=== PATIENT | female | born 1980 | race Caucasian/White ===

== ENCOUNTER 2019-11-30 23:38 | Emergency (ER) | payer MEDICAID ==
[~2019-11-30] VITALS: Ht 154.9 cm; Wt 82.6 kg
[2019-11-30 23:48] VITALS: Ht 154.9 cm; Wt 82.6 kg
[2019-12-01 00:16] VITALS: BP 176/69
== END 2019-12-01 00:16 | disposition home or self-care (01) ==
LOC: ED 23:38
DX: S51.812D Laceration without foreign body of left forearm, subsequent encounter (principal); I10 Essential (primary) hypertension; E11.9 Type 2 diabetes mellitus without complications; X58.XXXD Exposure to other specified factors, subsequent encounter; M77.9 Enthesopathy, unspecified

== ENCOUNTER 2019-12-08 19:52 | Inpatient (IN) | payer MEDICAID ==
[~2019-12-08] VITALS: Ht 154.9 cm; Wt 79.2 kg
--- NOTE | 2019-12-08 20:02 | NUR ---
EKG IN PROGRESS IN TRIAGE.
--- NOTE | 2019-12-08 20:13 | NUR ---
PT PRESENTS TO ED WITH C/O CHEST PAIN. PT STATES THAT THE PAIN STARTED ON WEDNESDAY AND SHE SAW HER PCP ON WEDNESDAY. PT STATES THAT THEY PERFORMED BLOOD WORK AND SENT HER HOME BUT HER PAIN DID NOT IMPROVE. PT STATES THAT SHE SAW HER PCP AGAIN TODAY AND THEY TOLD HER TO COME TO THE ED. PT STATES THAT THE PAIN IS L SIDED AND NON-RADIATING. PT REPORTS FEELING SOB AT REST WHICH IS ABNORMAL FOR HER. PT STATES THAT THE PAIN IS SHARP IN NATURE. PT STATES TO NAUSEA AND VOMITING WITH X4 EPISODES OF VOMITING TODAY. PT IS AOX4, RESP EVEN AND UNLABORED, NO ACUTE DISTRESS NOTED.
[2019-12-08 20:24] LABS: BASOPHIL % 0.7 % (0-2)
[2019-12-08 20:27] LABS: PLATELET COUNT 433 x10^3mcL (130-400); RED CELL DISTRIBUTION WIDTH 14.8 % (11.5-14.5)
[2019-12-08 20:33] LABS: CALCIUM 9.8 mg/dL (8.5-10.1); CARBON DIOXIDE 29.2 mmol/L (21-32); CHLORIDE SERUM 98 mmol/L (98-107); CREATININE SERUM 0.6 mg/dL (0.6-1.0); GFR1 > 60 mL/min; GLUCOSE SERUM 236 mg/dL (74-106); POTASSIUM SERUM 3.4 mmol/L (3.5-5.1); SODIUM SERUM 135 mmol/L (136-145)
[2019-12-08 20:38] LABS: ALKALINE PHOSPHATASE 120 U/L (46-116); ALT/SGPT 33 U/L (14-59); AST/SGOT 13 U/L (15-37); BILIRUBIN TOTAL 0.8 mg/dL (0.20-1.00)
[2019-12-08 20:39] LABS: TOTAL PROTEIN, SERUM 8.3 g/dL (6.4-8.2)
[2019-12-08] MEDS ORDERED: GLU850 PO (21:50)
[2019-12-08] MEDS ORDERED: GLIPIZIDE10 M2 (21:51)
[2019-12-08] MEDS ORDERED: GOOD SENSE ASPI81 M3 (21:51)
--- NOTE | 2019-12-08 22:05 | NUR ---
PT REPORT CALLED TO TOBIN RODRIGUEZ TO ASSUME PT CARE.
--- NOTE | 2019-12-08 22:07 | NUR ---
RECEIVED REPORT FROM ALEJANDRO RODRIGUEZ FROM ED. AWAITING FOR PT TO ARRIVE ON UNIT.
--- NOTE | 2019-12-08 22:08 | NUR ---
PT TRANSFERRED TO [facility] BY [facility] BY AYLIN RODRIGUEZ AND CRISTELA EMT. PT ON FULL CM FOR TRANSPORT. PT IS AOX4, RESP EVEN AND UNLABORED, NO ACUTE DISTRESS NOTED. PT ACCEPTED BY TOBIN RODRIGUEZ TO ASSUME PT CARE, PT AMBULATED FROM [facility] TO BED WITH STEADY GAIT.
--- NOTE | 2019-12-08 22:20 | NUR ---
RECEIVED PT FROM ED VIA [facility], CAME IN DUE TO CHEST PAIN X1 WEEK W/ SOB. AAOX4. C/O 10/10 PRESSURE HEADACHE, DENIES DIZZINESS. SPEECH IS CLEAR. C/O MILD SOB, LUNG SOUNDS CTA. O2 SAT=96%, RA. C/O 10/10 PRESSURE LEFT SIDED CHEST PAIN, NON-RADIATING, SR W/ DEPRESSED ST ON THE MONITOR. C/O NAUSEA. STATED THAT SHE HAS 4 EPISODES OF VOMITING AND DIARRHEA. ABDOMEN IS SOFT. BOWEL SOUNDS ACTIVE. ABDOMEN IS SOFT. VOIDS. W/ LFA SCAB/DISCOLORATION, STEPHANY. IV SITE ON THE LAC IS PATENT AND INTACT. SIDE RAILS UPX2. CALL LIGHT ON REACH. ENDORSED TO PRIMARY NURSE TOBIN FOR CONTINUITY OF CARE.
--- NOTE | 2019-12-08 22:30 | NUR ---
RECEIVED REPORT FROM MIKE RODRIGUEZ FOR CONTINUITY OF CARE.
[2019-12-08 22:33] VITALS: BP 132/89
[2019-12-08 22:39] LABS: microscopic required? YES; urine erythrocyte 2+ (NEGATIVE)
[2019-12-08 22:49] LABS: AMPHETAMINE QUAL UR NONE DETECTED (See below)
--- NOTE | 2019-12-08 23:06 | NUR ---
PT C/O HEADACHE AND CHEST PAIN 05/08. PT C/O NAUSEA. PER MAR, ADMINISTERED NORCO AND ZOFRAN. WILL REASSESS IN AN HOUR. WILL CONTINUE TO MONITOR.
[2019-12-08 23:47] LABS: FREE T4 0.97 ng/dL (0.76-1.46); FREE THYROXINE INDEX 2.7 ug/dL (1.4-4.5); T3 TOTAL 0.87 ng/mL; T4(THYROXINE) 8.4 ug/dL (4.7-13.3)
--- NOTE | 2019-12-09 00:06 | NUR ---
PT SLEEPING AT THIS TIME. NO ACUTE DISTRESS NOTED. CALL LIGHT WITHIN REACH. BED IN LOWEST POSITION. SIDE RAILS X2 UP. WILL CONTINUE TO MONITOR.
[2019-12-09 00:50] LABS: MAGNESIUM 1.4 mg/dL (1.8-2.4)
[2019-12-09 01:02] LABS: CHOLESTEROL/HDL RATIO 3.1
[2019-12-09 04:50] VITALS: BP 112/66
[2019-12-09 06:21] LABS: BASOPHIL % 0.4 % (0-2); PLATELET COUNT 394 x10^3mcL (130-400)
--- NOTE | 2019-12-09 06:37 | NUR ---
PT SLEPT FOR MOST OF THE NIGHT. NO ACUTE DISTRESS NOTED. PT COMPLIED WITH NURSING CARE THROUGHOUT THE SHIFT. COMFORT AND SAFETY MEASURES MAINTAINED. ALL QUESTIONS AND CONCERNS ADDRESSED. WILL CONTINUE TO MONITOR. WILL ENDORSE CARE TO DAY SHIFT NURSE.
[2019-12-09 06:59] LABS: CALCIUM 9.4 mg/dL (8.5-10.1); CARBON DIOXIDE 26.5 mmol/L (21-32); CHLORIDE SERUM 94 mmol/L (98-107); CREATININE SERUM 0.5 mg/dL (0.6-1.0); GFR1 > 60 mL/min; GLUCOSE SERUM 231 mg/dL (74-106); MAGNESIUM 2.4 mg/dL (1.8-2.4); PHOSPHOROUS 4.6 mg/dL (2.5-4.9); POTASSIUM SERUM 3.9 mmol/L (3.5-5.1); SODIUM SERUM 130 mmol/L (136-145)
[2019-12-09 07:19] LABS: RED CELL DISTRIBUTION WIDTH 14.9 % (11.5-14.5)
--- NOTE | 2019-12-09 07:25 | NUR ---
PT IS AAOX4. TELE [address] READING NSR WITH MILD DEPRESSED ST SEGMENT. PT DENIES C/P AND PRESSURE. IV CATH TO LAC PATENT WITH FLUIDS RUNNING. RESP EVEN AND UNLABORED. NO DISTRESS NOTED. CALL LIGHT WITHIN REACH. BED IN LOWEST POSITION. WILL CONTINUE TO MONITOR.
--- NOTE | 2019-12-09 07:26 | NUR ---
ENDORSED CARE TO MALU RODRIGUEZ. ALL QUESTIONS AND CONCERNS ANSWERED.
[2019-12-09 08:06] VITALS: BP 99/52
--- NOTE | 2019-12-09 09:05 | NUR ---
NICORDERM PATCH APPLIED TO L UPPER BACK, LIDODERM PATCH APPLIED TO R CHEST. ZOFRAN IVP GIVEN FOR NAUSEA. LISINOPRIL HELD, SBP 99/55 (68). HR 63. WILL CONTINUE TO MONITOR.
--- NOTE | 2019-12-09 10:20 | NUR ---
PT ADMITTED FROM ED, ARRIVED ON GURNEY, REPORT GIVEN BY JENNIFER JOY. PT ADMITTED FOR C/P, NO C/P AT THIS TIME. PT IS AAOX4. TELE [address] READING NSR WITH MILD ST DEPRESSION. PT STATE L SIDE OF CHEST HURTS WHEN PALPATED. PERIPHERAL PULSES MODERATELY PALPABLE, NO EDEMA. CAP REFILL <3 SEC, SKIN WARM. IV CATH TO LAC WITH FLUIDS RUNNING, SITE WNL, COVERED WITH CDI DRESSING. ABDOMEN SOFT, NONTENDER, NONDISTENDED. BOWEL SOUNDS ACTIVE X QUADS. LAST BM ON 12/08/19, FORMED. DENIES N/V, DIARRHEA AND CONSITPATION. LUNG SOUND CTA, ON R/A. NO COUGH OR SOB. AMBULATED INDEPENDENTLY. SKIN CDI. PT ORIENTED TO ROOM AND CALL LIGHT. BED IN LOWEST POSTION. CALL LIGHT WITHIN REACH.
--- NOTE | 2019-12-09 10:35 | NUR ---
PEPCID PO GIVEN. PT EDUCATED ON RISKS, BENEFITS AND SIDE EFFECTS OF MEDICATION. PT VERBALIZED UNDERSTANDING. PT DENIES C/P AT THIS TIME. CALL LIGHT WITHIN REACH.
--- NOTE | 2019-12-09 11:12 | NUR ---
JENA ALONZO NP MET WITH PT AND DISCUSSED POC. 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 PT IS NOT TO EAT OUTSIDE FOOD. PT VERBALIZED UNDERSTANDING.
--- NOTE | 2019-12-09 11:53 | NUR ---
BLOOD SUGAR 173, 3 UNITS REG INSULIN GIVEN PER RISS. IV FLUIDS REPLENISHED. PT DENIES PAIN AT THIS TIME. CALL LIGHT WITHIN REACH.
[2019-12-09 12:13] VITALS: BP 117/73
--- NOTE | 2019-12-09 16:42 | NUR ---
PT LAC CATH FELL OUT WITH CATH INTACT. SITE WNL, COVERED WITH GAUZE AND BANDAID. NEW IV CATH 22 G TO LFA PLACED, AREA COVERED WITH CDI DRESSING. PT TOLERATED PROCEDURE WELL. CALL LIGHT WITHIN REACH. BED IN LOWEST POSITION.
[2019-12-09 16:50] VITALS: BP 114/72
--- NOTE | 2019-12-09 17:10 | NUR ---
NORCO GIVEN FOR BACK PAIN 06/07, PT STATES SHE HAS GALLSTONES THAT HURT HER. EXTRA FLUID GIVEN. BLOOD SUGAR 161, 3 UNITS REG INSULIN GIVEN. CALL LIGHT WITHIN REACH.
--- NOTE | 2019-12-09 18:35 | NUR ---
PT IS AAOX4. TELE [address] READIN NSR WITH MILDLY DEPRESSED ST SEGMENT. IV CATH TO LFA PATENT WITH FLUIDS RUNNING. SITE WNL. NO S/S OF INFECTION OR INFILTRATION. PT DENIES C/P AND PRESSURE. RESP EVEN AND UNLABORED. NO DISTRESS NOTED. CALL LIGHT WITHIN REACH. BED IN LOWEST POSITION. WILL ENDORSE ALL CARE TO NOC RN.
--- NOTE | 2019-12-09 19:20 | NUR ---
RECEIVED REPORT FROM MALU RODRIGUEZ. PT AAOX4 AND DENIES LUNDY OR DIZZINESS AT THIS TIME. PT IS ON TELE #4, NSR W/ DEPRESSED ST AND HR 89. PT DENIES CHEST PAIN OR PRESSURE AT THIS TIME. PT PULSES PALPABLE AND CAP REFILL <3 SEC. PT LUNG SOUNDS CTA ON RA. PT DENIES SOB OR RESPIRATORY DISTRESS AT THIS TIME. PT ABD SOFT AND ROUND. PT BOWEL SOUNDS ACTIVE X4. PT DENIES N/V/D AT THIS TIME. PT VOIDS FREELY WITH BRP. PT IS AMBULATORY. PT HAS SCABS/DISCOLORATIONS TO LFA. PT IV PATENT AND INTACT. CALL LIGHT WITHIN REACH. BED IN LOWEST POSITION. SIDE RAILS X2 UP. WILL CONTINUE TO MONITOR.
[2019-12-09 21:12] VITALS: BP 129/84
--- NOTE | 2019-12-09 23:41 | NUR ---
PT AWAKE AND WATCHING TV AT THIS TIME. PT DENIES ANY ACUTE DISTRESS, PAIN, OR DISCOMFORT. CALL LIGHT WITHIN REACH. BED IN LOWEST POSITION. SIDE RAILS X2 UP. WILL CONTINUE TO MONITOR.
--- NOTE | 2019-12-10 01:36 | NUR ---
PT SLEEPING AT THIS TIME. PT BREATHING EVEN AND UNLABORED. NO ACUTE DISTRESS NOTED. CALL LIGHT WITHIN REACH. BED IN LOWEST POSITION. SIDE RAILS X2 UP. WILL CONTINUE TO MONITOR.
--- NOTE | 2019-12-10 04:55 | NUR ---
PT SLEPT FOR MOST OF THE NIGHT. NO ACUTE DISTRESS NOTED. PT COMPLIED WITH NURSING CARE THROUGHOUT THE SHIFT. ALL SAFETY AND COMFORT MEASURES WERE MAINTAINED. ALL QUESTIONS AND CONCERNS ADDRESSED. WILL ENDORSE TO DAY SHIFT NURSE. WILL CONTINUE TO MONITOR.
[2019-12-10 06:06] VITALS: BP 113/62
[2019-12-10 06:58] LABS: BASOPHIL % 0.3 % (0-2); PLATELET COUNT 324 x10^3mcL (130-400)
[2019-12-10 07:17] LABS: CALCIUM 8.1 mg/dL (8.5-10.1); CARBON DIOXIDE 25.7 mmol/L (21-32); CHLORIDE SERUM 107 mmol/L (98-107); CREATININE SERUM 0.5 mg/dL (0.6-1.0); GFR1 > 60 mL/min; GLUCOSE SERUM 177 mg/dL (74-106); MAGNESIUM 1.6 mg/dL (1.8-2.4); PHOSPHOROUS 3.2 mg/dL (2.5-4.9); POTASSIUM SERUM 3.6 mmol/L (3.5-5.1); SODIUM SERUM 142 mmol/L (136-145)
--- NOTE | 2019-12-10 07:20 | NUR ---
RECEIVED PT FROM BINDERY MANAGER NURSE. PT IN BED SLEEPING, AROUSABLE, RESP E/U ON RA. NO SIGNS OF ACUTE DISTRESS NOTED. ON TELE 4 SHOWING NSR, HR: 73. IV TO LFA W/ NO SIGNS OF INFILTRATION, IVF INFUSING WELL. BED IN LOWEST POSITION AND CALL LIGHT WITHIN REACH. WILL CONTINUE TO MONITOR.
[2019-12-10 07:30] LABS: RED CELL DISTRIBUTION WIDTH 14.7 % (11.5-14.5)
[2019-12-10 08:29] VITALS: BP 120/71
--- NOTE | 2019-12-10 12:38 | NUR ---
PT SEEN AT BEDSIDE. C/O OF MIGRAINE RATED 9/10. DENIES DIZZINESS OR NAUSEA. MEDICATED ORDERED PER EMAR, COMFORT MEASURES IMPLEMENTED. BED IN LOWEST POSITION AND CALL LIGHT WITHIN REACH. WILL CONTINUE TO MONITOR.
[2019-12-10 13:21] VITALS: BP 136/92
--- NOTE | 2019-12-10 13:59 | NUR ---
ECHOCARDIOGRAM [id number].
[2019-12-10 15:44] VITALS: BP 152/82
--- NOTE | 2019-12-10 17:42 | NUR ---
PT RESTING IN BED, AXO4, RESP E/U ON RA. DENIES HEADACHE, NAUSEA OR CHEST PAIN. NO ACUTE DISTRESS NOTED. IV TO LFA W/ NO SIGNS OF INFILTRATION, IVF INFUSING WELL. BED IN LOWEST POSITION AND CALL LIGHT WITHIN REACH. WILL ENDORSE TO ONCOMING NURSE.
--- NOTE | 2019-12-10 19:35 | NUR ---
RECEIVED PT FROM DAY SHIFT RN. AAOX4 DENIES LUNDY/DIZZINESS. BREATHING EVEN AND UNLABORED ON RA WITH NO SOB NOTED. MED SURG PT DENIES CHEST PAIN/PRESSURE. IV LFA, INFILTRATED. NO ACUTE DISTRESS NOTED. CALL BUTTON WITHIN REACH. SAFETY PRECAUTIONS IN PLACE. WILL MONITOR.
[2019-12-10 20:28] VITALS: BP 132/82
--- NOTE | 2019-12-11 00:55 | NUR ---
PT RESTING. BREATHING EVEN AND UNLABORED ON RA WITH NO SOB NOTED. NO ACUTE DISTRESS NOTED. CALL BUTTON WITHIN REACH. SAFETY PRECAUTIONS IN PLACE. WILL CONTINUE TO MONITOR.
[2019-12-11 06:03] VITALS: BP 124/70
--- NOTE | 2019-12-11 06:07 | NUR ---
PT AWAKE DENIES PAIN. NO ACUTE DISTRESS NOTED. PT SLEPT MOST OF THE NIGHT. BREATHING EVEN AND UNLABORED ON RA. AMBULATORY. IV PATENT, INFUSING WELL. PT DENIES CHEST PAIN. CALL BUTTON WITHIN REACH. SAFETY PRECAUTIONS IN PLACE. WILL ENDORSED CARE TO DAY SHIFT RN, ALL QUESTIONS ADDRESSED.
[2019-12-11 07:15] LABS: CALCIUM 7.7 mg/dL (8.5-10.1); CARBON DIOXIDE 28.3 mmol/L (21-32); CHLORIDE SERUM 105 mmol/L (98-107); CREATININE SERUM 0.4 mg/dL (0.6-1.0); GFR1 > 60 mL/min; GLUCOSE SERUM 158 mg/dL (74-106); POTASSIUM SERUM 3.7 mmol/L (3.5-5.1); SODIUM SERUM 141 mmol/L (136-145)
--- NOTE | 2019-12-11 07:16 | NUR ---
PT RESTING. BREATHING EVEN AND UNLABORED. NO ACUTE DISTRESS NOTED. CALL BUTTON WITHIN REACH. SAFETY PRECAUTIONS IN PLACE. ENDORSED CARE TO DAY SHIFT RN, ALL QUESTIONS ADDRESSED.
[2019-12-11 07:55] LABS: BASOPHIL % 0.3 % (0-2); PLATELET COUNT 293 x10^3mcL (130-400)
--- NOTE | 2019-12-11 08:00 | NUR ---
SHIFT ASSESSMENT DONE. PATIENT A/A/OX4; CLEAR SPEECH. DENIED HEADACHE AND CHEST PAIN. NO RESP DISTRESS ON RA. IVF OF NS 100CC/HR TO RFA. SITE CLEAN. AMBULAORY. GAIT STEADY. TOLERATED BREAKFAST WELL. CALL LIGHT IN REACH.
[2019-12-11] MEDS ORDERED: LIPI10 PO (08:08)
[2019-12-11] MEDS ORDERED: ZES5 PO (08:09)
[2019-12-11 08:24] VITALS: BP 124/70
[2019-12-11 08:35] LABS: RED CELL DISTRIBUTION WIDTH 14.7 % (11.5-14.5)
[2019-12-11 09:00] VITALS: BP 143/80
--- NOTE | 2019-12-11 10:28 | NUR ---
D/C TO HOME PER ORDER. INSTRUCTION GIVEN. IV D/C'D. CONDITION STABLE.
== END 2019-12-11 10:29 | disposition home or self-care (01) | DRG 203 ==
LOC: ED 19:52 → MU 21:38 → DU 21:38 → MU 12-10 22:26
PROVIDERS: Emergency Medicine; ADMIT Family Medicine
DX: R07.89 Other chest pain (principal); N17.0 Acute kidney failure with tubular necrosis; E11.65 Type 2 diabetes mellitus with hyperglycemia; D68.69 Other thrombophilia; E83.42 Hypomagnesemia; E83.39 Other disorders of phosphorus metabolism; E87.1 Hypo-osmolality and hyponatremia; E87.6 Hypokalemia; E86.0 Dehydration; K80.20 Calculus of gallbladder without cholecystitis without obstruction; G43.909 Migraine, unspecified, not intractable, without status migrainosus; I10 Essential (primary) hypertension; E78.5 Hyperlipidemia, unspecified; F17.210 Nicotine dependence, cigarettes, uncomplicated
CPT/HCPCS: 82962; 84439; G0378; J1815; J1885; J2405; J3475; J7030; Q0092